=== PATIENT | female | born 1960 | race Two or more races ===

== ENCOUNTER 2022-04-15 10:03 | Emergency (ER) | payer MEDICAID ==
[~2022-04-15] VITALS: Ht 162.6 cm; Wt 67.0 kg
[2022-04-15 10:16] VITALS: BP 138/96
[2022-04-15] MEDS ORDERED: ALBUTEROL (0.083%) 2.5MG/3ML NEB HHN ONE (11:00)
[2022-04-15] MEDS ORDERED: PREDNISONE 20MG TABLET PO ONE (11:00)
[2022-04-15] MEDS ORDERED: PREDNISONE 20MG TABLET PO NR (17:00)
[2022-04-15] MEDS ORDERED: ALBU18HF2 IH (17:41)
[2022-04-15] MEDS ORDERED: P50 PO (17:41)
[2022-04-15] MEDS ORDERED: ALBUTEROL (0.083%) 2.5MG/3ML NEB HHN NR (18:00)
== END 2022-04-15 18:21 | disposition home or self-care (01) ==
LOC: ER 10:03
DX: R05.8 Other specified cough (principal); R06.2 Wheezing; R09.89 Other specified symptoms and signs involving the circulatory and respiratory systems; R03.0 Elevated blood-pressure reading, without diagnosis of hypertension
CPT/HCPCS: 71045; 94640; 99283; J7512; Z7610